=== PATIENT | female | born 1980 | race Caucasian/White ===

== ENCOUNTER 2018-05-07 16:42 | Emergency (ER) | payer BC, OTHER ==
[~2018-05-07] VITALS: Ht 170.2 cm; Wt 63.5 kg
[~2018-05-07 16:42] MED LIST: FAMO20TA5 PO
[2018-05-07] MEDS ORDERED: TRAM50TA2 (16:54)
[2018-05-07] MEDS ORDERED: CYCL10TA9 (16:54)
[2018-05-07] MEDS ORDERED: HYDR-3812 (16:54)
[2018-05-07] MEDS ORDERED: PRD20T (16:54)
[2018-05-07] MEDS ORDERED: KETOROLAC 30 MG/ML VIAL IVP ONE (17:00)
[2018-05-07] MEDS ORDERED: ORPHENADRINE 60 MG/2 ML (NORFLEX) AMP IV ONE (17:00)
[2018-05-07] MEDS ORDERED: GABAPENTIN 300 MG (NEURONTIN) CAP PO ONE (17:45)
[2018-05-07] MEDS ORDERED: fentaNYL INJECTION 100 MCG/2 ML AMP IVP ONE (17:45)
[2018-05-07] MEDS ORDERED: oxyCODONE/APAP 5/325MG (PERCOCET 5) TABLET PO ONE (18:15)
[2018-05-07] MEDS ORDERED: OXYC-199 PO (18:23)
[2018-05-07] MEDS ORDERED: GABA-488 PO (18:23)
[2018-05-07] MEDS ORDERED: PRD20T PO (18:23)
--- NOTE | 2018-05-07 18:24 | ED Back Pain ---
General Chief Complaint: Back Problems Stated Complaint: BACK PAIN Nursing Triage Note: TO ED PER EMS WITH C/O BACK PAIN FOR 2 MONTHS LAST SEVERAL WEEKS HAS GOTTEN WORSE. HAD MRI AT [address] ON WEDNESDAY. IS ON FLEXARIL,PREDISONE, HYDROCODONE,TRAMADOL ARE NOT HELPING. NO INJURY.NO INCONTINENCE OF BOWEL OR BLADDER, 50MCG OF FENTANYL GIVEN BY EMS NOT HELPING. PARENTS AT BEDSIDE ON ADMIT Nursing Sepsis Screen: No Definite Risk Source of Information: Patient Exam Limitations: No Limitations History of Present Illness Date Seen by Provider: May 07, 2018 Time Seen by Provider: 16:44 Initial Comments This 38-year-old woman presents to the emergency room with complaints of lower back pain radiating into the left buttocks and down the thigh. Pain has been worsening over the past 2 months. She had an MRI performed at [address] 2 days ago and does not know the results yet. She has been prescribed trazodone, Flexeril, and a Medrol Dosepak. She arrives via EMS who administered 50 g of fentanyl. She states this did not improve her pain. She is also hyperventilating and having contractures of her fingers as a result. There was no blunt trauma or other injury. She denies any bowel or bladder dysfunction, saddle paresthesia, or weakness of her legs. Allergies and Home Medications Allergies Coded Allergies: No Known Drug Allergies (Unverified , 08/01/14) Home Medications Famotidine 20 Mg Tablet, 1 EACH PO BID Prescribed by: ALYSHA DRAKE on 08/01/14 1116 Gabapentin 300 Mg Capsule, 300 MG PO TID PRN for PAIN-MODERATE TO SEVERE Prescribed by: SHANTA BISHOP on 05/07/181822 Oxycodone HCl/Acetaminophen 1 Each Tablet, 1-2 EACH PO Q4H PRN for PAIN-MODERATE Prescribed by: SHANTA BISHOP on 05/07/181822 Prednisone 20 Mg Tab, 40 MG PO DAILY Prescribed by: SHANTA BISHOP on 05/07/181822 Patient Home Medication List Home Medication List Reviewed: Yes Review of Systems Constitutional: no symptoms reported EENTM: no symptoms reported Respiratory: no symptoms reported Cardiovascular: no symptoms reported Gastrointestinal: no symptoms reported Genitourinary: no symptoms reported : No Musculoskeletal: see HPI Skin: no symptoms reported Past Iygsacz-[id number]-Bynnvt Hx Patient Social History Alcohol Use: Denies Use Recreational Drug Use: No Smoking Status: Never a Smoker Recent Foreign Travel: No Contact w/Someone Who Travel: No Recent Infectious Disease Expo: No Past Medical History Surgeries: Yes Tonsillectomy Respiratory: No Cardiac: No Neurological: No Reproductive Disorders: No Sexually Transmitted Disease: No Gastrointestinal: No Musculoskeletal: No Endocrine: No Cancer: No Psychosocial: No Integumentary: No Blood Disorders: No Physical Exam Vital Signs Vital Signs - First Documented 05/07/18 16:46 Temp 98.0 Pulse 81 Resp 18 B/P (MAP) 111/73 (86) Pulse Ox 98 O2 Delivery Room Air Capillary Refill : Less Than 3 Seconds Height, Weight, BMI Height: 5'7.00" Weight: 140lbs. oz. 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 Skin: Normal Color, Warm/Dry Progress/Results/Core Measures Results/Orders My Orders Orders - SHANTA DENTON MD Ketorolac Injection (Toradol Injection) (05/07/18 17:00) Orphenadrine Injection (Norflex Injectio (05/07/18 17:00) Fentanyl Injection (Sublimaze Injection (05/07/18 17:45) Gabapentin Capsule/Tablet (Neurontin Cap (05/07/18 17:45) Oxycodone/Apap 5/325mg Tablet (Percocet (05/07/18 18:15) Medications Given in ED Vital Signs/I&O 05/07/18 05/07/18 16:46 18:39 Temp 98.0 98.0 Pulse 81 80 Resp 18 16 B/P (MAP) 111/73 (86) 112/59 Pulse Ox 98 98 O2 Delivery Room Air Room Air Blood Pressure Mean: 86 Progress Progress Note : Progress Note Patient was initially treated with Toradol and Norflex which did not help her pain at all. She was then treated with fentanyl which brought her some comfort. I discussed the case with Dr. Mckeon who was able to review her MRI report from [facility]. He reported minor disc bulging in the lumbar region but no significant spinal stenosis or other abnormalities. He suggested treating her pain and treating again with steroids. He will try to get her in soon at the clinic. Patient was additionally given some gabapentin and Percocet prior to dismissal for further control of her pain. Departure Impression Primary Impression: Lumbar radiculopathy Disposition: HOME, SELF-CARE Condition: Improved Departure-Patient Inst. Decision time for Depature: 18:10 Referrals: NO,LOCAL PHYSICIAN (PCP/Family) Primary Care Physician Patient Instructions: Radiculopathy Add. Discharge Instructions: Use your medications as prescribed. Percocet is a stronger pain medication that you may substitute for hydrocodone for more severe pain. Follow-up with [facility] next week for further care. Return to the emergency room if you have worsening symptoms, particularly if you develop leg weakness, numbness in the genital area, or difficulty controlling your bowels or bladder. All discharge instructions reviewed with patient and/or family. Voiced understanding. Scripts Gabapentin (Gabapentin) 300 Mg Capsule 300 MG PO TID PRN for PAIN-MODERATE TO SEVERE, #10 CAP Prov: SHANTA DENTON MD 05/07/18 Prednisone (Prednisone) 20 Mg Tab 40 MG PO DAILY, #8 TAB Prov: SHANTA DENTON MD 05/07/18 Oxycodone HCl/Acetaminophen (Percocet 5-325 mg Tablet) 1 Each Tablet 1-2 EACH PO Q4H PRN for PAIN-MODERATE, #20 TAB Prov: SHANTA DENTON MD 05/07/18 Copy Copies To 1: KERVIN MCKEON JOSHUA T MD May 07, 2018 18:24
[2018-05-07 18:39] VITALS: BP 112/59
== END 2018-05-07 18:46 | disposition home or self-care (01) ==
LOC: EDUNIT# 16:42 → ER 16:44
DX: M54.16 Radiculopathy, lumbar region (principal); Z79.52 Long term (current) use of systemic steroids; Z90.89 Acquired absence of other organs